=== PATIENT | male | born 1985 | race Caucasian/White ===

== ENCOUNTER 2020-09-08 14:35 | Outpatient (RCR) | payer OTHER | END 2020-11-16 | disposition home or self-care (01) | LOC: WSOH | DX: S61.441A Puncture wound with foreign body of right hand, initial encounter (principal); I10 Essential (primary) hypertension; I42.9 Cardiomyopathy, unspecified; Z90.89 Acquired absence of other organs; Y99.0 Civilian activity done for income or pay; Z95.810 Presence of automatic (implantable) cardiac defibrillator ==